=== PATIENT | female | born 1990 | race Caucasian/White ===

== ENCOUNTER 2020-02-07 11:59 | Emergency (ER) | payer BC, OTHER ==
[~2020-02-07] VITALS: Ht 157.5 cm; Wt 102.1 kg
[2020-02-07 12:52] VITALS: BP 149/80
[2020-02-07] MEDS ORDERED: ACETAMINOPHEN/CODEINE#3 (300/30mg) TAB PO ONE (14:15)
== END 2020-02-07 15:30 | disposition home or self-care (01) ==
LOC: ER 11:59
DX: S43.402A Unspecified sprain of left shoulder joint, initial encounter (principal); S30.1XXA Contusion of abdominal wall, initial encounter; T83.32XA Displacement of intrauterine contraceptive device, initial encounter; V49.9XXA Car occupant (driver) (passenger) injured in unspecified traffic accident, initial encounter; Y93.89 Activity, other specified; Y92.89 Other specified places as the place of occurrence of the external cause; Y99.8 Other external cause status
CPT/HCPCS: 72100; 73030; 74176

== ENCOUNTER 2021-02-20 14:59 | Emergency (ER) | payer BC, OTHER ==
[~2021-02-20] VITALS: Ht 157.5 cm; Wt 99.8 kg
[2021-02-20 16:20] VITALS: BP 132/57
[2021-02-20] MEDS ORDERED: HYDROcodone-ACET 5/325MG TAB PO ONE (16:30)
== END 2021-02-20 17:32 | disposition home or self-care (01) ==
LOC: ER 14:59
DX: S92.354A Nondisplaced fracture of fifth metatarsal bone, right foot, initial encounter for closed fracture (principal); W01.0XXA Fall on same level from slipping, tripping and stumbling without subsequent striking against object, initial encounter; Y93.89 Activity, other specified; Y92.89 Other specified places as the place of occurrence of the external cause; Y99.8 Other external cause status
CPT/HCPCS: 29515; 73630